=== PATIENT | male | born 1950 | race Caucasian/White ===

== ENCOUNTER 2019-01-07 09:01 | Day surgery (SDC) | payer MEDICARE, BC ==
[2019-01-06 09:00] LABS: BASOPHILS # (AUTO) 0.1 X10'3 (0-0.2); BASOPHILS % (AUTO) 0.8 % (0-1); EOSINOPHILS # (AUTO) 0.3 X10'3 (0-0.9); EOSINOPHILS % (AUTO) 3.7 % (0-6); HEMATOCRIT 46.6 % (42.0-52.0); HEMOGLOBIN 16.5 g/dl (14.0-17.9); LYMPHOCYTES # (AUTO) 2.1 X10'3 (1.1-4.8); LYMPHOCYTES % (AUTO) 29.6 % (21-51); MEAN CORPUSCULAR HEMOGLOBIN 31.6 PG (27.0-31.0); MEAN CORPUSCULAR HGB CONC 35.4 g/dL (33.0-36.5); MEAN CORPUSCULAR VOLUME 89.2 FL (78-98); MEAN PLATELET VOLUME 6.3 FL (7.4-10.4); MONOCYTES # (AUTO) 0.6 X10'3 (0-0.9); NEUTROPHILS % (AUTO) 56.9 % (42-75); PLATELET COUNT 183 X10'3 (140-440); RED BLOOD COUNT 5.22 X10'6 (4.70-6.10); RED CELL DISTRIBUTION WIDTH 13.8 % (11.5-14.5)
[2019-01-06 09:05] LABS: ALBUMIN 3.9 G/DL (3.4-5.0); ANION GAP 8 (8-16); BLOOD UREA NITROGEN 33 MG/DL (7-18); BUN/CREATININE RATIO 21.3 (5.4-32.0); CALCIUM 9.2 MG/DL (8.5-10.1); CHLORIDE 105 MMOL/L (99-107); CREATININE 1.55 MG/DL (0.60-1.10); GLUCOSE 113 MG/DL (70-104); POTASSIUM 4.1 MMOL/L (3.5-5.1); SODIUM 137 MMOL/L (135-145); TOTAL CARBON DIOXIDE 23.8 MMOL/L (24-32); eGFR 45 ML/MIN
[2019-01-06 09:13] LABS: INR 1.1 INR; PROTHROMBIN TIME 10.9 SECONDS (9.0-12.0)
[2019-01-06 09:14] LABS: PARTIAL THROMBOPLASTIN TIME 27 SECONDS (22-32)
[~2019-01-07] VITALS: Ht 185.4 cm; Wt 122.6 kg
[2019-01-07] VITALS (13 sets, daily range): BP systolic 111–152; BP diastolic 71–92
[2019-01-07] MEDS ORDERED: diphenhydrAMINE 25mg capsule PO PRN (09:20)
[2019-01-07] MEDS ORDERED: sodium bicarbonate (8.4%) inj. 150 ML in dextrose 5%-water 1,000 ML IV ONE (09:20)
[2019-01-07] MEDS ORDERED: LORazepam 0.5 MG tablet PO PRN (09:20)
[2019-01-07] MEDS ORDERED: acetylcysteine 200 MG/ml 4ml vial PO PRN (09:20)
[2019-01-07] MEDS ORDERED: ASPI81TA52 PO (09:40)
[2019-01-07] MEDS ORDERED: CYAN100070 PO (09:40)
[2019-01-07] MEDS ORDERED: LOSA100T57 PO (09:40)
[2019-01-07] MEDS ORDERED: ATOR40TA PO (09:40)
[2019-01-07] MEDS ORDERED: METO50TA17 PO (09:40)
[2019-01-07] MEDS ORDERED: SPIR25TA5 PO (09:40)
[2019-01-07] MEDS ORDERED: CHOL10008 PO (09:40)
[2019-01-07] MEDS ORDERED: MAGN500T12 (09:40)
[2019-01-07] MEDS ORDERED: fentaNYL/PF 50MCG/1 ML 2ML syringe ONE (10:56)
[2019-01-07] MEDS ORDERED: heparin 1,000unit/ml 10ml vial 10 ML ONE (10:56)
[2019-01-07] MEDS ORDERED: midazolam 2 mg/2 ml injection ONE (10:56)
[2019-01-07] MEDS ORDERED: verapamil 2.5 mg/ml inj IV ONE (10:56)
[2019-01-07] MEDS ORDERED: LIDOcaine 1% (10mg/ml)w/preservative injection 20ml MDV ONE (10:56)
[2019-01-07] MEDS ORDERED: nitroGLYCERIN-Tridil 50MG/D5W 250 ML IV ONE (10:56)
[2019-01-07] MEDS ORDERED: iohexol 350 MG/ML 50ML vial IV ONE (10:56)
[2019-01-07] MEDS ORDERED: iohexol 350MG/ML 100ml bottle IV ONE ×2 (10:57→12:08)
--- NOTE | 2019-01-07 13:00 | NUR ---
Patient in room . I have received report from MONISHA Zayas and had the opportunity to ask questions and assume patient care.
--- NOTE | 2019-01-07 15:15 | NUR ---
Problems reprioritized. Patient report given, questions answered & plan of care reviewed with MONISHA JACQUES.
--- NOTE | 2019-01-07 16:17 | NUR ---
1544 PATIENT REPORT WAS RECEIVED FROM MONISHA KAISER. PT ALERT, ORIENTED. AGREE WITH EARLY ASSESSMENT OF PT. PT UP TO BATHROOM TO VOID. STABLE BP, HR, SATS. UP ON HIS OWN AND STEADY.
== END 2019-01-07 19:00 | disposition home or self-care (01) ==
LOC: SSTAY O 09:01
PROVIDERS: ATTEND Internal Medicine Cardiovascular Disease
DX: I25.10 Atherosclerotic heart disease of native coronary artery without angina pectoris (principal); I10 Essential (primary) hypertension; E78.5 Hyperlipidemia, unspecified
CPT/HCPCS: 36415; 80048; 85025; 85610; 85730; 93005; 93459; 93567; 99152; 99153; A6257; J1644; J2001; J2250; J3010; Q0163; Q9967; A4620; C1769; J3490

== ENCOUNTER 2019-01-14 05:50 | Day surgery (SDC) | payer MEDICARE, BC ==
[2019-01-13 08:59] LABS: BASOPHILS # (AUTO) 0.1 X10'3 (0-0.2); BASOPHILS % (AUTO) 0.7 % (0-1); EOSINOPHILS # (AUTO) 0.2 X10'3 (0-0.9); EOSINOPHILS % (AUTO) 3.2 % (0-6); HEMOGLOBIN 15.3 g/dl (14.0-17.9); LYMPHOCYTES # (AUTO) 2.1 X10'3 (1.1-4.8); LYMPHOCYTES % (AUTO) 27.4 % (21-51); MEAN CORPUSCULAR HEMOGLOBIN 31.7 PG (27.0-31.0); MEAN CORPUSCULAR HGB CONC 35.7 g/dL (33.0-36.5); MEAN CORPUSCULAR VOLUME 88.8 FL (78-98); MEAN PLATELET VOLUME 6.3 FL (7.4-10.4); MONOCYTES # (AUTO) 0.7 X10'3 (0-0.9); MONOCYTES % (AUTO) 9.4 % (2-12); NEUTROPHILS # (AUTO) 4.5 X10'3 (1.8-7.7); NEUTROPHILS % (AUTO) 59.3 % (42-75); PLATELET COUNT 208 X10'3 (140-440); RED BLOOD COUNT 4.84 X10'6 (4.70-6.10); RED CELL DISTRIBUTION WIDTH 13.6 % (11.5-14.5); WHITE BLOOD COUNT 7.6 X10'3 (4.5-11.0)
[2019-01-13 09:05] LABS: ALBUMIN 3.5 G/DL (3.4-5.0); ANION GAP 6 (8-16); BLOOD UREA NITROGEN 18 MG/DL (7-18); BUN/CREATININE RATIO 11.7 (5.4-32.0); CALCIUM 8.8 MG/DL (8.5-10.1); CHLORIDE 104 MMOL/L (99-107); CREATININE 1.54 MG/DL (0.60-1.10); GLUCOSE 136 MG/DL (70-104); SODIUM 136 MMOL/L (135-145); TOTAL CARBON DIOXIDE 25.8 MMOL/L (24-32); eGFR 45 ML/MIN
[2019-01-13 09:16] LABS: INR 1.1 INR; PARTIAL THROMBOPLASTIN TIME 28 SECONDS (22-32)
[~2019-01-14] VITALS: Ht 185.4 cm; Wt 123.7 kg
[2019-01-14] VITALS (26 sets, daily range): BP systolic 117–164; BP diastolic 65–103
[~2019-01-14 05:50] MED LIST: ASPI81TA52 PO; ATOR40TA PO; CHOL10008 PO; CYAN100070 PO; LOSA100T57 PO; MAGN500T12; METO50TA17 PO; SPIR25TA5 PO
[2019-01-14] MEDS ORDERED: ISOS60TA4 PO (06:09)
[2019-01-14] MEDS ORDERED: sodium bicarbonate (8.4%) inj. 150 ML in dextrose 5%-water 1,000 ML IV ONE (06:10)
[2019-01-14] MEDS ORDERED: acetylcysteine 200 MG/ml 4ml vial PO PRN (06:10)
[2019-01-14] MEDS ORDERED: diphenhydrAMINE 25mg capsule PO PRN (06:10)
[2019-01-14] MEDS ORDERED: LORazepam 0.5 MG tablet PO PRN (06:10)
[2019-01-14] MEDS ORDERED: midazolam 2 mg/2 ml injection ONE (07:42)
[2019-01-14] MEDS ORDERED: fentaNYL/PF 50MCG/1 ML 2ML syringe ONE (07:42)
[2019-01-14] MEDS ORDERED: iohexol 350 MG/1 ML 200ml bottle ONE (07:43)
[2019-01-14] MEDS ORDERED: heparin 1,000unit/ml 10ml vial 10 ML ONE ×2 (07:43→10:13)
[2019-01-14] MEDS ORDERED: nitroGLYCERIN-Tridil 50MG/D5W 250 ML IV ONE (07:43)
[2019-01-14] MEDS ORDERED: LIDOcaine 1% (10mg/ml)w/preservative injection 20ml MDV ONE (07:43)
[2019-01-14] MEDS ORDERED: heparin 25,000 UNIT/250ml bag 250 ML IV ONE (08:02)
[2019-01-14] MEDS ORDERED: atropine 0.1mg/ml 10ml syringe ONE (09:00)
[2019-01-14] MEDS ORDERED: iohexol 350MG/ML 100ml bottle IV ONE (09:17)
[2019-01-14] MEDS ORDERED: clopidogrel 300mg tablet ONE ×2 (10:00→10:09)
--- NOTE | 2019-01-14 10:36 | NUR ---
PT came back to floor with a femoral art line in place. Zeroed art line and being transduced. Placed a the phlebostatic axis. Post education given to PT. Addendum: 01/14/19 at 1718 by Stacy Lombardi RN Amended: Links added.
[2019-01-14] MEDS ORDERED: aspirin 81mg tab.chew PO ONE (11:20)
[2019-01-14] MEDS ORDERED: OXAZEpam 15mg capsule PO PRN (11:20)
[2019-01-14] MEDS ORDERED: HYDROcodone/acetaminophen 10/325mg tab PO PRN ×2 (11:20→11:25)
[2019-01-14] MEDS ORDERED: proCHLORperazine 10 MG/2 ml inj IV PRN (11:20)
[2019-01-14] MEDS ORDERED: acetaminophen 325mg tablet PO PRN (11:20)
[2019-01-14] MEDS ORDERED: cyclobenzaprine 10mg tablet PO PRN (11:20)
[2019-01-14] MEDS ORDERED: magnesium hydroxide 30ml (MOM) UD suspension PO PRN (11:20)
[2019-01-15] MEDS ORDERED: clopidogrel 75mg tablet PO SCH (08:00)
[2019-01-15] MEDS ORDERED: aspirin 325mg tablet PO SCH (08:00)
== END 2019-01-14 19:30 | disposition home or self-care (01) ==
LOC: SSTAY O 05:50
PROVIDERS: ATTEND Internal Medicine Cardiovascular Disease
DX: I25.118 Atherosclerotic heart disease of native coronary artery with other forms of angina pectoris (principal); I10 Essential (primary) hypertension; E78.5 Hyperlipidemia, unspecified; E66.9 Obesity, unspecified; G47.33 Obstructive sleep apnea (adult) (pediatric); Z95.1 Presence of aortocoronary bypass graft
CPT/HCPCS: 36415; 80048; 85025; 85347; 85610; 85730; 93005; 99152; 99153; A6257; A6449; C1874; C1887; C9600; J0461; J1644; J2001; J2250; J3010; J7030; Q0163; Q9967; A4620; C1725; C1760; C1769; C9601; J3490

== ENCOUNTER 2022-06-06 05:48 | Day surgery (SDC) | payer MEDICARE, BC ==
[2022-06-05 10:40] LABS: BASOPHILS # (AUTO) 0.1 X10'3 (0-0.2); BASOPHILS % (AUTO) 0.9 % (0-1); EOSINOPHILS # (AUTO) 0.1 X10'3 (0-0.9); EOSINOPHILS % (AUTO) 2.1 % (0-6); HEMATOCRIT 48.6 % (42.0-52.0); HEMOGLOBIN 16.9 g/dl (14.0-17.9); LYMPHOCYTES # (AUTO) 1.8 X10'3 (1.1-4.8); LYMPHOCYTES % (AUTO) 26.6 % (21-51); MEAN CORPUSCULAR HEMOGLOBIN 31.1 PG (27.0-31.0); MEAN CORPUSCULAR HGB CONC 34.8 g/dL (33.0-36.5); MEAN CORPUSCULAR VOLUME 89.3 FL (78-98); MEAN PLATELET VOLUME 6.2 FL (7.4-10.4); MONOCYTES # (AUTO) 0.6 X10'3 (0-0.9); MONOCYTES % (AUTO) 8.6 % (2-12); NEUTROPHILS # (AUTO) 4.1 X10'3 (1.8-7.7); NEUTROPHILS % (AUTO) 61.8 % (42-75); PLATELET COUNT 191 X10'3 (140-440); RED BLOOD COUNT 5.44 X10'6 (4.70-6.10); RED CELL DISTRIBUTION WIDTH 13.9 % (11.5-14.5); WHITE BLOOD COUNT 6.7 X10'3 (4.5-11.0)
[2022-06-05 10:51] LABS: APTT 27 SECONDS (22-32)
[2022-06-05 11:09] LABS: ALBUMIN 3.8 G/DL (3.4-5.0); ANION GAP 11 (8-16); BLOOD UREA NITROGEN 20 MG/DL (7-18); BUN/CREATININE RATIO 13.7 (5.4-32.0); CALCIUM 9.2 MG/DL (8.5-10.1); CHLORIDE 104 MMOL/L (99-107); CREATININE 1.46 MG/DL (0.60-1.10); GLUCOSE 171 MG/DL (70-104); SODIUM 137 MMOL/L (135-145); eGFR 48 ML/MIN
[2022-06-06] VITALS (11 sets, daily range): BP systolic 101–143; BP diastolic 65–83
[~2022-06-06] VITALS: Ht 185.4 cm; Wt 122.2 kg
[~2022-06-06 05:48] MED LIST changes: +ISOS60TA71 PO
[2022-06-06] MEDS ORDERED: diphenhydrAMINE 25mg capsule PO PRN (06:10)
[2022-06-06] MEDS ORDERED: LORazepam 0.5 MG tablet PO PRN (06:10)
[2022-06-06] MEDS ORDERED: sodium bicarbonate (8.4%) inj. 150 ML in dextrose 5%-water 1,000 ML IV ONE (06:10)
[2022-06-06] MEDS ORDERED: normal saline 1,000 ML IV SCH (06:10)
[2022-06-06] MEDS ORDERED: CLOP75TA15 PO (06:20)
[2022-06-06] MEDS ORDERED: [UNRECOGNIZED DRUG - REMARK] (06:22)
[2022-06-06] MEDS: acetylcysteine 200 MG/ml 4ml vial PO PRN ×2 (06:56→15:51)
[2022-06-06] MEDS ORDERED: verapamil 2.5 mg/ml inj IV ONE (07:22)
[2022-06-06] MEDS ORDERED: midazolam 1 mg/ML 2ml injection ONE (07:22)
[2022-06-06] MEDS ORDERED: LIDOcaine 1%/PF 5ML 10 MG/ML VIAL ONE (07:22)
[2022-06-06] MEDS ORDERED: nitroGLYCERIN-Tridil 50MG/D5W 250 ML IV ONE (07:22)
[2022-06-06] MEDS ORDERED: iohexol 350MG/ML 100ml bottle IV ONE ×3 (07:23→08:38)
[2022-06-06] MEDS ORDERED: fentaNYL/PF 50MCG/1 ML 2ML syringe ONE (07:23)
[2022-06-06] MEDS ORDERED: heparin 1,000unit/ml 10ml vial 10 ML ONE (07:23)
--- NOTE | 2022-06-06 09:30 | NUR ---
Pt arrived to unit from [facility] [employer]. voided 200ml yellow, clear. Pt denies pain at left wrist. Denies cp, denies sob. Pt vs stable as charted.
--- NOTE | 2022-06-06 09:35 | NUR ---
Fluids infusing as ordered upon arrival from radiographer cardiac catheterization.
[2022-06-06] MEDS ORDERED: sodium bicarbonate (8.4%) inj. 50 MEQ in dextrose 5%-water 1,000 ML IV SCH (09:45)
--- NOTE | 2022-06-06 10:45 | NUR ---
Pt ambulated to bathroom, voided. Denies cp, denies sob. Pt states he "doesn't have any pain". Pt was brought his breakfast as ordered. Sitting up in bed. Son at bedside.
--- NOTE | 2022-06-06 11:00 | NUR ---
Pt ate 100% of breakfast tray. Denies N/V.
--- NOTE | 2022-06-06 12:26 | NUR ---
Pt ambulated to bathroom, voided. Denies sob, denies cp. VS stable as charted.
--- NOTE | 2022-06-06 13:33 | NUR ---
Pt appears to be resting comfortably in bed, watching tv, son at bedside. Pt denies any needs at this time. vs stable as charted. Site stable. [facility] CD&I.
== END 2022-06-06 15:55 | disposition home or self-care (01) ==
LOC: SSTAY O 05:48
PROVIDERS: ATTEND Internal Medicine Cardiovascular Disease
DX: I25.10 Atherosclerotic heart disease of native coronary artery without angina pectoris (principal); I25.82 Chronic total occlusion of coronary artery; I10 Essential (primary) hypertension; E78.5 Hyperlipidemia, unspecified; E66.9 Obesity, unspecified; G47.33 Obstructive sleep apnea (adult) (pediatric); Z98.890 Other specified postprocedural states; Z79.899 Other long term (current) drug therapy; Z79.01 Long term (current) use of anticoagulants; Z88.8 Allergy status to other drugs, medicaments and biological substances
CPT/HCPCS: 36415; 80048; 85025; 85610; 85730; 93005; 93459; C1769; C1894; J1644; J2250; J3010; J3490; J7030; J7070; Q0163; Q9967; 99152; 99153; A4620; A6258; A6402